=== PATIENT | female | born 1980 | race Caucasian/White ===

== ENCOUNTER → 2019-09-04 | Outpatient (CLI) | payer BC ==
--- NOTE | 2019-09-04 13:05 | PCVCIMAG ---
APPROVED REPORT Study performed: 09/04/2019 07:43:37 EXAM: Comprehensive 2D, Doppler, and color-flow Echocardiogram Patient Location: Echo lab Status: routine BSA: 1.97 HR: 61 bpmBP: 130/68 mmHg Rhythm: NSR W/ PACs Other Information Study Quality: Adequate Risk Factors: Cardiac Risk Factors: Hyperlipidemia Indications Chest Pain 2D Dimensions IVSd: 9.60 (7-11mm) LVDd: 49.53 mm PWd: 9.65 (7-11mm) LVDs: 38.48 (25-40mm) Left Atrium: 36.36 (27-40mm) Aortic Root: 29.61 mm LV Single Plane 4CH: 55.05 % LV Single Plane 2CH: 59.51 % Biplane EF: 57.3 % Volumes Left Atrial Volume (Systole) Single Plane 4CH: 48.97 mLSingle Plane 2CH: 64.24 mL LA ESV Index: 29.00 mL/m2 Aortic Valve AoV Peak Rah.: 1.41 m/s AO Peak Gr.: 7.95 mmHgLVOT Max P.23 mmHg LVOT Max V: 1.03 m/s Mitral Valve E/A Ratio: 1.4 MV Decel. Time: 331.39 ms MV E Max Rah.: 0.51 m/s MV A Rah.: 0.36 m/s IVRT: 93.43 ms Pulmonary Valve PV Peak Rah.: 0.85 m/sPV Peak Gr.: 2.92 mmHg Pulmonary Vein P Vein S: 0.42 m/sP Vein A: 0.30 m/s P Vein D: 0.51 m/sP Vein A Dur.: 131.5 msec P Vein S/D Ratio: 0.82 Tricuspid Valve TR Peak Rah.: 2.35 m/s TR Peak Gr.: 22.13 mmHg Left Ventricle The left ventricle is normal size. There is normal LV segmental wall motion. There is normal left ventricular wall thickness. Left ventricular systolic function is normal. The left ventricular ejection fraction is within the normal range. LVEF is 55-60%. The left ventricular diastolic function is normal. Right Ventricle The right ventricle is normal size. The right ventricular systolic function is normal. Atria The left atrium size is normal. The right atrium size is normal. Aortic Valve The aortic valve is normal in structure. No aortic regurgitation is present. There is no aortic valvular stenosis. Mitral Valve The mitral valve is normal in structure. Trace mitral regurgitation. No evidence of mitral valve stenosis. Tricuspid Valve The tricuspid valve is normal in structure. Trace tricuspid regurgitation with PAP of 29 mmHg. Pulmonic Valve The pulmonary valve is normal in structure. Trace pulmonic regurgitation. Great Vessels The aortic root is normal in size. IVC is normal in size and collapses >50% with inspiration. Pericardium There is no pericardial effusion. There is no pleural effusion. <Conclusion> The left ventricle is normal size. LVEF is 55-60%. The aortic valve is normal in structure. The mitral valve is normal in structure. Trace mitral regurgitation. The tricuspid valve is normal in structure. Trace tricuspid regurgitation with PAP of 29 mmHg. The pulmonary valve is normal in structure. Trace pulmonic regurgitation. There is no pericardial effusion.
--- NOTE | 2019-09-05 12:23 | PCVCIMAG ---
APPROVED REPORT Imaging Protocol: Rest Tc-99m/Stress Tc-99m 1 day Study performed: 09/04/2019 09:42:09 Indication: Chest pain Patient Location: Out-Patient Stress Nurse: Shannan Urena RN ND Tech:Lyssa YipFAINA rowlandMT Ht: 5 ft 6 in Wt: 192 lbs BSA: 1.97 m2 HR: 86 bpm BP: 117/58 mmHg BMI: 30.98 Rhythm: Normal Sinus Rhythm with sinus arrhythmia Medical History Medical History: Hyperlipidemia Medications: None Allergies: No known drug allergies Cardiac Risk Factors: Age, FHX of CAD Pretest Chest Pain Characteristics: No chest pain Exercise History: Physically active Resting Data Rest SPECT myocardial perfusion imaging was performed in supine position 45 minutes following the intravenous injection of 10.3 mCi of Tc-99m Sestamibi. Time of rest injection: 0845 Date: 09/04/2019 Administration Route: IV Administration Site: Right Hand Exercise Stress At peak stress, the patient was injected intravenously with 3.1mCi of Tc-99m Sestamibi. Time of stress injection: 1030 Date: 09/04/2019 Administration Route: IV Administration Site: Right Hand Patient continued to exercise for 1 minute(s). Gated Stress SPECT was performed 30 minutes after stress injection. The images were gated to evaluate regional wall motion and calculate left ventricular ejection fraction. Stress Test Details Stress Test: Exercise stress testing was performed using a Yo protocol. HRMax Heart Rate (APMHR): 182 bpm Resting HR: 86 bpmTarget HR (85% APMHR): 154 bpm Max HR Achieved: 176 bpm % of APMHR: 96 Recovery HR: 100 bpm BP Resting BP: 117/58 mmHg Max BP: 146/74 mmHg Recovery BP: 118/63 mmHg ECG Resting ECG: Normal Sinus Rhythm with sinus arrhythmia Stress ECG: Sinus Tachycardia Arrhythmia: PAC's Recovery ECG: Sinus Tachycardia Clinical Reason for Termination: Maximal effort Stress Symptoms: Dyspnea Exercise duration: 10 min 31 sec Exercise capacity: 13.4 METs Symptoms resolved during recovery. Stress ECG Conclusion 1. Subjectively negative for ischemia 2. Electrocardiographically negative for ischemia 3. Adequate functional capacity Study Data Post stress, the left ventricular ejection was 70%.. SSS: 0 SRS: 1 SDS: 0 TID = 0.78. Perfusion There is a small area of moderately reduced uptake in the apical segment of the anterior wall which is seen on the stress images as well as the resting images. This area thickens and moves normally and is most consistent with attenuation artifact. Wall Motion Normal left ventricular wall motion. Nuclear Conclusion ECG Findings: negative for ischemia Clinical Findings: negative for ischemia Nuclear Findings: negative for ischemia Exercise Capacity: satisfactory Left Ventricular Function: normal 1. Low risk study 2. Post stress left ventricular ejection fraction of 70% with normal contractility <Conclusion> 1. Subjectively negative for ischemia 2. Electrocardiographically negative for ischemia 3. Adequate functional capacity
== END | disposition home or self-care (01) ==
LOC: PCVCIMAG 08:09
PROVIDERS: ATTEND Internal Medicine
DX: R07.9 Chest pain, unspecified (principal)
CPT/HCPCS: 78452; 93017; 93306; A9500